=== PATIENT | male | born 1990 | race Caucasian/White ===

== ENCOUNTER 2017-04-13 10:23 | Emergency (ER) | payer OTHER ==
[~2017-04-13] VITALS: Ht 170.2 cm; Wt 112.9 kg
[~2017-04-13 10:23] MED LIST: CETIRIZINE HYDR10 MG PO; CIPROFLOXACIN500 MG PO; FLEXERIL10 MG PO; KETOCONAZOLE2% TOP; OMEPRAZOLE DR20 M1 PO
[2017-04-13 12:13] LABS: CALCIUM 9.1 mg/dL (8.5-10.1); CARBON DIOXIDE 29.7 mmol/L (21-32); CHLORIDE SERUM 104 mmol/L (98-107); GFR1 > 60 mL/min; GLUCOSE SERUM 97 mg/dL (74-106); POTASSIUM SERUM 3.6 mmol/L (3.5-5.1); SODIUM SERUM 142 mmol/L (136-145)
[2017-04-13 12:40] LABS: BASOPHIL % 0.6 % (0-2); PLATELET COUNT 212 x10^3mcL (130-400); RED CELL DISTRIBUTION WIDTH 13.3 % (11.5-14.5)
[2017-04-13 13:48] VITALS: BP 141/82
== END 2017-04-13 13:48 | disposition home or self-care (01) ==
LOC: ED 10:23
PROVIDERS: Emergency Medicine
DX: S83.92XA Sprain of unspecified site of left knee, initial encounter (principal); S39.012A Strain of muscle, fascia and tendon of lower back, initial encounter; S20.212A Contusion of left front wall of thorax, initial encounter; S70.12XA Contusion of left thigh, initial encounter; V49.40XA Driver injured in collision with unspecified motor vehicles in traffic accident, initial encounter; Y93.89 Activity, other specified; Y99.8 Other external cause status; Y92.89 Other specified places as the place of occurrence of the external cause
CPT/HCPCS: J2270; J2405; Q9967

== ENCOUNTER 2017-09-09 06:28 | Emergency (ER) | payer OTHER ==
[~2017-09-09] VITALS: Ht 170.2 cm; Wt 116.3 kg
[2017-09-09 08:01] VITALS: BP 121/76
== END 2017-09-09 08:02 | disposition home or self-care (01) ==
LOC: ED 06:28
DX: S20.211A Contusion of right front wall of thorax, initial encounter (principal); V49.9XXA Car occupant (driver) (passenger) injured in unspecified traffic accident, initial encounter; Y93.19 Activity, other involving water and watercraft; Y92.488 Other paved roadways as the place of occurrence of the external cause; Y99.8 Other external cause status
CPT/HCPCS: J1885

== ENCOUNTER 2018-09-16 20:09 | Emergency (ER) | payer OTHER ==
[~2018-09-16] VITALS: Ht 170.2 cm; Wt 115.2 kg
[2018-09-16 20:29] VITALS: Ht 170.2 cm; Wt 115.2 kg
[2018-09-16 22:14] VITALS: BP 131/83
== END 2018-09-16 22:14 | disposition home or self-care (01) ==
LOC: ED 20:09
DX: T15.12XA Foreign body in conjunctival sac, left eye, initial encounter (principal); X58.XXXA Exposure to other specified factors, initial encounter; Y92.69 Other specified industrial and construction area as the place of occurrence of the external cause

== ENCOUNTER 2019-01-24 00:19 | Emergency (ER) | payer SELFPAY ==
[~2019-01-24] VITALS: Ht 170.2 cm; Wt 120.2 kg
[2019-01-24 00:23] VITALS: BP 121/74; Ht 170.2 cm; Wt 120.2 kg
== END 2019-01-24 02:04 | disposition home or self-care (01) ==
LOC: ED 00:19
DX: R10.9 Unspecified abdominal pain (principal); F41.9 Anxiety disorder, unspecified
CPT/HCPCS: J0500

== ENCOUNTER 2019-06-25 15:21 | Emergency (ER) | payer SELFPAY ==
[~2019-06-25] VITALS: Ht 170.2 cm; Wt 102.1 kg
[2019-06-25 15:26] VITALS: Ht 170.2 cm; Wt 102.1 kg
[2019-06-25 16:08] LABS: BASOPHIL % 1.1 % (0-2); PLATELET COUNT 243 x10^3mcL (130-400); RED CELL DISTRIBUTION WIDTH 13.2 % (11.5-14.5)
[2019-06-25 16:16] LABS: CALCIUM 8.6 mg/dL (8.5-10.1); CARBON DIOXIDE 27.5 mmol/L (21-32); CHLORIDE SERUM 103 mmol/L (98-107); GFR1 > 60 mL/min; GLUCOSE SERUM 86 mg/dL (74-106); POTASSIUM SERUM 3.9 mmol/L (3.5-5.1); SODIUM SERUM 139 mmol/L (136-145)
[2019-06-25 16:21] LABS: ALBUMIN 3.7 g/dL (3.4-5.0); ALKALINE PHOSPHATASE 58 U/L (46-116); ALT/SGPT 46 U/L (16-63); AST/SGOT 13 U/L (15-37); BILIRUBIN TOTAL 0.47 mg/dL (0.20-1.00)
[2019-06-25 18:03] VITALS: BP 114/73
== END 2019-06-25 18:07 | disposition home or self-care (01) ==
LOC: ED 15:21
PROVIDERS: Emergency Medicine
DX: R07.89 Other chest pain (principal); R00.2 Palpitations; R20.0 Anesthesia of skin; I10 Essential (primary) hypertension; F41.9 Anxiety disorder, unspecified
CPT/HCPCS: 36415; Q0092

== ENCOUNTER 2019-09-24 17:47 | Emergency (ER) | payer SELFPAY ==
[~2019-09-24] VITALS: Ht 170.2 cm; Wt 121.1 kg
[2019-09-24 17:52] VITALS: Ht 170.2 cm; Wt 121.1 kg
[2019-09-24 21:08] VITALS: BP 148/70
== END 2019-09-24 21:06 | disposition home or self-care (01) ==
LOC: ED 17:47
DX: M54.5 Low back pain (principal); R30.0 Dysuria; I10 Essential (primary) hypertension; F41.9 Anxiety disorder, unspecified

== ENCOUNTER 2019-10-07 14:20 | Emergency (ER) | payer SELFPAY ==
[~2019-10-07] VITALS: Ht 170.2 cm; Wt 118.8 kg
[2019-10-07 14:25] VITALS: Ht 170.2 cm; Wt 118.8 kg
[2019-10-07 15:17] LABS: CALCIUM 8.4 mg/dL (8.5-10.1); CARBON DIOXIDE 22.6 mmol/L (21-32); CHLORIDE SERUM 101 mmol/L (98-107); CREATININE SERUM 0.9 mg/dL (0.7-1.3); GFR1 > 60 mL/min; GLUCOSE SERUM 103 mg/dL (74-106); POTASSIUM SERUM 3.8 mmol/L (3.5-5.1); SODIUM SERUM 135 mmol/L (136-145)
[2019-10-07 15:20] LABS: BASOPHIL % 0.1 % (0-2); PLATELET COUNT 214 x10^3mcL (130-400); RED CELL DISTRIBUTION WIDTH 13.3 % (11.5-14.5)
[2019-10-07 15:22] LABS: ALBUMIN 3.6 g/dL (3.4-5.0); ALKALINE PHOSPHATASE 51 U/L (46-116); ALT/SGPT 43 U/L (16-63); AST/SGOT 14 U/L (15-37); BILIRUBIN TOTAL 0.66 mg/dL (0.20-1.00); TOTAL PROTEIN, SERUM 7.7 g/dL (6.4-8.2)
[2019-10-07] MEDS ORDERED: KEFLEX500 M1 (18:07)
[2019-10-07 18:56] VITALS: BP 103/56
== END 2019-10-07 19:11 | disposition home or self-care (01) ==
LOC: ED 14:20
PROVIDERS: Emergency Medicine
DX: L03.113 Cellulitis of right upper limb (principal); R11.10 Vomiting, unspecified; R19.7 Diarrhea, unspecified
CPT/HCPCS: 90715; J2001; J2405; J3490; J7030

== ENCOUNTER 2019-11-27 19:42 | Emergency (ER) | payer OTHER ==
[~2019-11-27] VITALS: Ht 170.2 cm; Wt 117.0 kg
[~2019-11-27 19:42] MED LIST changes: +KEFLEX500 M1
[2019-11-27 19:46] VITALS: Ht 170.2 cm; Wt 117.0 kg
[2019-11-27 20:26] LABS: microscopic required? NO
[2019-11-27 20:35] LABS: urine erythrocyte NEGATIVE (NEGATIVE)
[2019-11-27 20:40] LABS: BASOPHIL % 1.2 % (0-2); PLATELET COUNT 240 x10^3mcL (130-400)
[2019-11-27 20:47] LABS: CALCIUM 9.2 mg/dL (8.5-10.1); CARBON DIOXIDE 29.7 mmol/L (21-32); CHLORIDE SERUM 100 mmol/L (98-107); CREATININE SERUM 1.1 mg/dL (0.7-1.3); GFR1 > 60 mL/min; GLUCOSE SERUM 87 mg/dL (74-106); POTASSIUM SERUM 3.9 mmol/L (3.5-5.1); SODIUM SERUM 133 mmol/L (136-145)
[2019-11-27 20:52] LABS: ALBUMIN 3.8 g/dL (3.4-5.0); ALKALINE PHOSPHATASE 54 U/L (46-116); ALT/SGPT 45 U/L (16-63); AST/SGOT 15 U/L (15-37); BILIRUBIN TOTAL 0.3 mg/dL (0.20-1.00); LIPASE 134 IU/L (73-393); TOTAL PROTEIN, SERUM 7.8 g/dL (6.4-8.2)
[2019-11-27 22:55] VITALS: BP 127/67
== END 2019-11-27 22:55 | disposition home or self-care (01) ==
LOC: ED 19:42
PROVIDERS: Emergency Medicine
DX: K29.70 Gastritis, unspecified, without bleeding (principal); I10 Essential (primary) hypertension
CPT/HCPCS: 36415

== ENCOUNTER 2019-12-03 01:14 | Emergency (ER) | payer OTHER ==
[~2019-12-03] VITALS: Ht 170.2 cm; Wt 118.4 kg
[2019-12-03 01:22] VITALS: Ht 170.2 cm; Wt 118.4 kg
[2019-12-03 05:37] VITALS: BP 150/95
== END 2019-12-03 05:37 | disposition home or self-care (01) ==
LOC: ED 01:14
DX: L03.011 Cellulitis of right finger (principal); I10 Essential (primary) hypertension; Z98.890 Other specified postprocedural states
CPT/HCPCS: J2001

== ENCOUNTER 2020-04-17 16:14 | Emergency (ER) | payer OTHER ==
[~2020-04-17] VITALS: Ht 170.2 cm; Wt 117.9 kg
[2020-04-17 16:15] VITALS: Ht 170.2 cm; Wt 117.9 kg
[2020-04-17 17:27] LABS: BASOPHIL % 0.5 % (0-2); PLATELET COUNT 246 x10^3mcL (130-400); RED CELL DISTRIBUTION WIDTH 12.8 % (11.5-14.5)
[2020-04-17 17:56] LABS: CALCIUM 8.7 mg/dL (8.5-10.1); CHLORIDE SERUM 101 mmol/L (98-107); CREATININE SERUM 0.9 mg/dL (0.7-1.3); GFR1 > 60 mL/min; GLUCOSE SERUM 96 mg/dL (74-106); POTASSIUM SERUM 4.1 mmol/L (3.5-5.1); SODIUM SERUM 137 mmol/L (136-145)
[2020-04-17 18:01] LABS: ALBUMIN 3.7 g/dL (3.4-5.0); ALKALINE PHOSPHATASE 55 U/L (46-116); ALT/SGPT 53 U/L (16-63); AST/SGOT 10 U/L (15-37); BILIRUBIN TOTAL 0.29 mg/dL (0.20-1.00); TOTAL PROTEIN, SERUM 7.2 g/dL (6.4-8.2)
[2020-04-17 19:28] VITALS: BP 149/98
== END 2020-04-17 19:29 | disposition home or self-care (01) ==
LOC: ED 16:14
PROVIDERS: Emergency Medicine
DX: R07.89 Other chest pain (principal); R00.2 Palpitations; I10 Essential (primary) hypertension
CPT/HCPCS: 36415; Q0092

== ENCOUNTER 2020-05-15 21:13 | Emergency (ER) | payer OTHER ==
[2020-05-15 21:21] VITALS: BP 128/90
== END 2020-05-15 21:43 | disposition home or self-care (01) ==
LOC: ED 21:13
DX: B34.9 Viral infection, unspecified (principal); I10 Essential (primary) hypertension; Z20.828 Contact with and (suspected) exposure to other viral communicable diseases
CPT/HCPCS: U0003-CS

== ENCOUNTER 2020-06-07 08:25 | Emergency (ER) | payer OTHER, SELFPAY ==
[~2020-06-07] VITALS: Ht 170.2 cm; Wt 117.9 kg
[2020-06-07 08:30] VITALS: Ht 170.2 cm; Wt 117.9 kg
[2020-06-07 10:32] VITALS: BP 140/80
== END 2020-06-07 10:32 | disposition home or self-care (01) ==
LOC: ED 08:25
DX: R05 Cough (principal); R50.9 Fever, unspecified; I10 Essential (primary) hypertension; Z20.828 Contact with and (suspected) exposure to other viral communicable diseases
CPT/HCPCS: U0003-CS

== ENCOUNTER 2020-07-04 18:18 | Emergency (ER) | payer OTHER ==
[~2020-07-04] VITALS: Ht 170.2 cm; Wt 120.7 kg
[2020-07-04 18:42] VITALS: BP 164/84; Ht 170.2 cm; Wt 120.7 kg
== END 2020-07-04 19:43 | disposition home or self-care (01) ==
LOC: ED 18:18
DX: S39.011A Strain of muscle, fascia and tendon of abdomen, initial encounter (principal); I10 Essential (primary) hypertension; X50.9XXA Other and unspecified overexertion or strenuous movements or postures, initial encounter; X50.0XXA Overexertion from strenuous movement or load, initial encounter; Y93.89 Activity, other specified; Y92.89 Other specified places as the place of occurrence of the external cause; Y99.8 Other external cause status